=== PATIENT | male | born 1970 | race Caucasian/White ===

== ENCOUNTER 2023-08-18 06:55 | Observation (INO) | payer OTHER ==
[2023-08-18] MEDS ORDERED: KETOROLAC 15 MG/ML 1 ML VIAL IVP STA ×2 (07:20→10:10)
--- NOTE | 2023-08-18 07:28 | ED ---
General Adult HPI - General Chief complaint: Extremity Injury, Lower Stated complaint: Pain in hip and thigh Time Seen by Provider: 08/18/23 07:04 Source: patient, EMS, RN notes reviewed Mode of arrival: EMS Limitations: no limitations - History of Present Illness Initial comments: Patient is a pleasant 53-year-old male presenting to the emergency department with complaints of right hip pain. Patient was doing a lot of moving of furniture this weekend. Patient had some discomfort. Patient will go to urgent care yesterday and was giving muscle relaxers and naproxen. Discomfort worsened around 4 AM. Discomfort increases with movement however sometimes gets better with loosening the area. Discomfort is mostly the anterior right hip. No abdom inal pain. No back pain. No weakness. No incontinence or retention of bowel or bladder products. No calf pain or leg swelling. - Related Data Allergies Allergy/AdvReac Type Severity Reaction Status Date / Time No Known Allergies Allergy Verified 08/18/23 07:24 Review of Systems ROS Statement: Those systems with pertinent positive or pertinent negative responses have been documented in the HPI. ROS Other: All systems not noted in ROS Statement are negative. Constitutional: Denies: fever Eyes: Denies: eye pain ENT: Denies: ear pain Respiratory: Denies: cough Cardiovascular: Denies: chest pain Endocrine: Denies: fatigue Gastrointestinal: Denies: abdominal pain Musculoskeletal: Reports: as per HPI Past Medical History Past Medical History: No Reported History History of Any Multi-Drug Resistant Organisms: None Reported Additional Past Surgical History / Comment(s): Umbilical hernia surgery in approx 2020 Past Psychological History: No Psychological Hx Reported Smoking Status: Never smoker Past Alcohol Use History: Occasional Past Drug Use History: None Reported General Exam Limitations: no limitations General appearance: alert, in no apparent distress Eye exam: Present: normal appearance Respiratory exam: Present: normal lung sounds bilaterally Cardiovascular Exam: Present: regular rate, normal rhythm Expanded Peripheral pulses: 2+: Femoral (R), Posterior Tibialis (R), Posterior Tibialis (L), Dorsalis Pedis (R), Dorsalis Pedis (L) GI/Abdominal exam: Present: soft. Absent: tenderness, pulsatile mass Extremities exam: Present: normal inspection, tenderness (Right anterior superior iliac spine). Absent: pedal edema, calf tenderness Back exam: Present: normal inspection. Absent: tenderness, vertebral tenderness Neurological exam: Present: alert. Absent: motor sensory deficit Expanded Sensory exam: Lower Extremity Light Touch: Normal Motor strength exam: RUE: 5, LUE: 5, RLE: 5, LLE: 5 Psychiatric exam: Present: normal affect, normal mood Skin exam: Present: normal color Course Vital Signs 08/18/23 08/18/23 08/18/23 07:09 09:06 11:10 Temperature 98.1 F 98.7 F Pulse Rate 77 76 88 Respiratory 18 20 28 H Rate Blood Pressure 135/88 138/83 140/81 O2 Sat by Pulse 95 96 96 Oximetry 08/18/23 08/18/23 11:15 12:25 Temperature Pulse Rate 89 Respiratory 20 30 H Rate Blood Pressure O2 Sat by Pulse 99 Oximetry Medical Decision Making - Medical Decision Making Was pt. sent in by a medical professional or institution (, PA, MEDICAL LAB SPECIALIST, urgent care, hospital, or custodial...) When possible be specific @ -No Did you speak to anyone other than the patient for history (EMS, parent, family, police, friend...)? What history was obtained from this source @ - is present and helps fight history including onset Did you review nursing and triage notes (agree or disagree)? Why? @ -I reviewed and agree with nursing and triage notes Were old charts reviewed (outside hosp., previous admission, EMS record, old EKG, old radiological studies, urgent care reports/EKG's, custodial records)? Report findings @ -No old charts available Differential Diagnosis (chest pain, altered mental status, abdominal pain women, abdominal pain men, vaginal bleeding, weakness, fever, dyspnea, syncope, headache, dizziness, GI bleed, back pain, seizure, CVA, palpatations, mental h ealth, musculoskeletal)? @ -Differential Musculoskeletal Muscular strain, contusion, ligament sprain, fracture, arthritis, septic arthritis, bursitis, cellulitis, muscle spasm, nerve compression, DVT, arterial occlusion, herpes zoster, electrolyte abnormality, tumor.... This is not meant to be in all inclusive list EKG interpreted by me (3pts min.). @ -As above X-rays interpreted by me (1pt min.). @ -Right hip x-ray does not reveal acute abnormality CT interpreted by me (1pt min.). @ -Computed tomography scan pelvis and right hip does not show any obvious abn ormality U/S interpreted by me (1pt. min.). @ -None done What testing was considered but not performed or refused? (CT, X-rays, U/S, labs)? Why? @ -Will add C-reactive protein test What meds were considered but not given or refused? Why? @ -None Did you discuss the management of the patient with other professionals (professionals i.e. DrSonia, PA, MEDICAL LAB SPECIALIST, lab, RT, psych nurse, manager social responsibility, director life insurance, teacher, grants officer, porter sample case)? Give summary @ -Case was discussed with Dr. Ruth, who will admit covering hospital call. Was smoking cessation discussed for >3mins.? @ -No Was critical care preformed (if so, how long)? @ -No Were there social determinants of health that impacted care today? How? (Homelessness, low income, unemployed, alcoholism, drug addiction, transportation, low edu. Level, literacy, decrease access to med. care, snf, rehab)? @ -No Was there de-escalation of care discussed even if they declined (Discuss DNR or withdrawal of care, Hospice)? DNR status @ -No What co-morbidities impacted this encounter? (DM, HTN, Smoking, COPD, CAD, Cancer, CVA, ARF, Chemo, Hep., AIDS, mental health diagnosis, sleep apnea, morbid obesity)? @ -None Was patient admitted / discharged? Hospital course, mention meds given and r oute, prescriptions, significant lab abnormalities, going to OR and other pertinent info. @ -Patient reevaluated. Patient comfortable rest however significant discomfort with attempted movement of the leg. Secondary to this patient will be admitted. Admission orders written. ortho will be placed on consult. Undiagnosed new problem with uncertain prognosis? @ -No Drug Therapy requiring intensive monitoring for toxicity (Heparin, Nitro, Insulin, Cardizem)? @ -No Were any procedures done? @ -No Diagnosis/symptom? @ -Hip pain Acute, or Chronic, or Acute on Chronic? @ -Acute Uncomplicated (without systemic symptoms) or Complicated (systemic symptoms)? @ -default Side effects of treatment? @ -No Exacerbation, Progression, or Severe Exacerbation? @ -No Poses a threat to life or bodily function? How? (Chest pain, [place], [place], pneumonia, PE, COPD, DKA, ARF, appy, cholecystitis, CVA, Diverticulitis, Homicidal, Suicidal, threat to staff... and all critical care pts) @ -No - Lab Data Result diagrams: 08/18/23 10:23 08/18/23 10:23 Lab Results 08/18/23 08/18/23 08/18/23 Range/Units 10:23 10:23 10:23 WBC 10.2 (3.8-10.6) k/uL RBC 5.14 (4.30-5.90) m/uL Hgb 15.5 (13.0-17.5) gm/dL Hct 45.4 (39.0-53.0) % MCV 88.4 (80.0-100.0) fL MCH 30.2 (25.0-35.0) pg MCHC 34.2 (31.0-37.0) g/dL RDW 13.3 (11.5-15.5) % Plt Count 225 (150-450) k/uL MPV 7.7 Neutrophils % 70 % Lymphocytes % 18 % Monocytes % 6 % Eosinophils % 3 % Basophils % 1 % Neutrophils # 7.1 (1.3-7.7) k/uL Lymphocytes # 1.9 (1.0-4.8) k/uL Monocytes # 0.7 (0-1.0) k/uL Eosinophils # 0.3 (0-0.7) k/uL Basophils # 0.1 (0-0.2) k/uL PT 11.1 (10.0-12.5) sec INR 1.0 (<1.2) APTT 22.5 (22.0-30.0) sec Sodium 141 (137-145) mmol/L Potassium 4.7 (3.5-5.1) mmol/L Chloride 107 (98-107) mmol/L Carbon Dioxide 25 (22-30) mmol/L Anion Gap 9 mmol/L BUN 21 H (9-20) mg/dL Creatinine 1.08 (0.66-1.25) mg/dL Est GFR (CKD-EPI)AfAm >90 (>60 ml/min/1.73 sqM) Est GFR (CKD-EPI)NonAf 79 (>60 ml/min/1.73 sqM) Glucose 123 H (74-99) mg/dL Calcium 9.5 (8.4-10.2) mg/dL Total Bilirubin 1.1 (0.2-1.3) mg/dL AST 28 (17-59) U/L ALT 47 (4-49) U/L Alkaline Phosphatase 60 (38-126) U/L Total Protein 7.5 (6.3-8.2) g/dL Albumin 4.2 (3.5-5.0) g/dL Disposition Clinical Impression: Hip pain Disposition: ADMITTED IP TO THIS HOSP Is patient prescribed a controlled substance at d/c from ED?: No Referrals: Manasa Arredondo MD [Primary Care Provider] - 1-2 days Time of Disposition: 12:43
--- NOTE | 2023-08-18 08:16 | XR ---
EXAMINATION TYPE: XR Hip RT and AP Pelvis DATE OF EXAM: 08/18/2023 COMPARISON: None HISTORY: Right hip pain TECHNIQUE: 2V right hip supplemented with an AP pelvis FINDINGS: Femoral heads articulate with the acetabulum. Joint spaces are preserved. Symphysis pubis a nd sacroiliac joints are normal. No acute fracture or dislocation of the right hip is evident. IMPRESSION: 1. Unremarkable 2 view right hip
[2023-08-18] MEDS ORDERED: HYDROmorphone 1 MG/ML 1 ML SYRINGE IVP STA ×2 (08:46→11:06)
[2023-08-18 10:39] LABS: Basophils # (A) 0.1 k/uL (0-0.2); Basophils % (A) 1 %; Eosinophils # (A) 0.3 k/uL (0-0.7); Eosinophils % (A) 3 %; HCT 45.4 % (39.0-53.0); HGB 15.5 gm/dL (13.0-17.5); Lymphocytes # (A) 1.9 k/uL (1.0-4.8); Lymphocytes % (A) 18 %; MCH 30.2 pg (25.0-35.0); MCHC 34.2 g/dL (31.0-37.0); MCV 88.4 fL (80.0-100.0); Mean Platelet Volume 7.7; Monocytes # (A) 0.7 k/uL (0-1.0); Monocytes % (A) 6 %; Neutrophils # (A) 7.1 k/uL (1.3-7.7); Neutrophils % (A) 70 %; Platelet Count 225 k/uL (150-450); RBC 5.14 m/uL (4.30-5.90); RDW 13.3 % (11.5-15.5); WBC 10.2 k/uL (3.8-10.6)
[2023-08-18 10:46] LABS: Partial Thromboplastin Time 22.5 sec (22.0-30.0); Prothrombin Time 11.1 sec (10.0-12.5)
[2023-08-18 11:13] LABS: ALT 47 U/L (4-49); AST 28 U/L (17-59); African American GFR (CKD) >90 (>60 ml/min/1.73 sqM); Albumin 4.2 g/dL (3.5-5.0); Alkaline Phosphatase 60 U/L (38-126); Anion Gap 9 mmol/L; Blood Urea Nitrogen 21 mg/dL (9-20); Calcium 9.5 mg/dL (8.4-10.2); Carbon Dioxide 25 mmol/L (22-30); Chloride 107 mmol/L (98-107); Glucose 123 mg/dL (74-99); Non-African American GFR(CKD) 79 (>60 ml/min/1.73 sqM); Potassium 4.7 mmol/L (3.5-5.1); Sodium 141 mmol/L (137-145); Total Bilirubin 1.1 mg/dL (0.2-1.3); Total Protein 7.5 g/dL (6.3-8.2)
--- NOTE | 2023-08-18 11:29 | CT ---
EXAMINATION TYPE: CT pelvis w con, CT femur RT w con DATE OF EXAM: 08/18/2023 COMPARISON: Pelvic and right hip x-ray earlier today HISTORY: Pain, questionable injury vs abscess CT DLP: 540 (accession [id number]), 706.5 (accession [id number]) mGycm Automated exposure control for dose reduction was used. CONTRAST: Performed with IV Contrast, patient injected with 100 mL of Isovue 300. FINDINGS: Suboptimal due to motion artifact. No acute fracture or dislocation the pelvis or the right femur. Sacroiliac joints are symmetric and within normal limits. Pubic symphysis is intact. Mild to moderate axial joint space loss in both hips is seen. Femoral head shapes are maintained bilaterally. There are 2 tiny nonspecific sclerotic foci in the right femoral head noted, findings favor benign b one islands. Degenerative changes in visualized portion of the exam. No free fluid in the pelvis. No significant groin adenopathy is seen. Muscle bulk in the bilateral thighs is maintained. No suspiciou s enhancement is noted. No well-formed fluid collection or abscess is seen. IMPRESSION: Suboptimal study. No acute fracture or dislocation the pelvis or right femur. No well-for med fluid collection or abscess identified.
[2023-08-18] MEDS ORDERED: ORPHENADRINE 30 MG/ML 2 ML VIAL IVP STA (12:26)
[2023-08-18] MEDS ORDERED: NALOXONE 0.4 MG/ML 1 ML VIAL IV PRN (12:44)
[2023-08-18] MEDS ORDERED: IBUPROFEN 400 MG TAB PO PRN (12:44)
[2023-08-18] MEDS ORDERED: ACETAMINOPHEN TAB 325 MG TAB PO PRN (12:44)
[2023-08-18] MEDS: SODIUM CHLORIDE 0.9% 1,000 ML IV SCH (13:53)
--- NOTE | 2023-08-18 14:04 | US ---
EXAMINATION TYPE: US venous doppler duplex LE RT DATE OF EXAM: 08/18/2023 1:42 PM COMPARISON: NONE CLINICAL INDICATION: Male, 53 years old with history of pain; Right hip/groin pain. No leg redness o r swelling. SIDE PERFORMED: Right TECHNIQUE: The lower extremity deep venous system is examined utilizing real time linear array sonog janina with graded compression, doppler sonography and color-flow sonography. VESSELS IMAGED: Common Femoral Vein Deep Femoral Vein Greater Saphenous Vein * Femoral Vein Popliteal Vein Small Saphenous Vein * Proximal Calf Veins (* superficial vessels) Right Leg: Negative for DVT IMPRESSION: 1. Right lower extremity ultrasound negative for deep venous thrombosis.
[2023-08-18] MEDS: HYDROmorphone 1 MG/ML 1 ML SYRINGE IVP PRN ×2 (14:22→21:33)
--- NOTE | 2023-08-18 16:12 | P.HPIM ---
History of Present Illness H&P Date: 08/18/23 Patient is a 53-year-old male with no significant past medical history presenting with right anterior hip pain. Pain started initially on the posterior aspect of right thigh 1-1/2 weeks ago. He claims that he was moving a lot of furniture during that time. However yesterday night the pain, worse and more anterior thigh. He is unable to walk because of extreme pain. He claims t hat it is 10 out of 10. He is not able to flex his right hip, otherwise pain is better controlled than he is resting. Vital signs have been within normal limits. CBC unremarkable, CMP shows BUN of 21, creatinine 1.08, glucose 123, negative CRP. Pelvic x-rays unremarkable. Femur CT shows no acute fracture or dislocation. Venous Dopplers negative for DVT. Patient required multiple doses of pain medications in the ED, unable to ambulate due to extreme pain. Admitted for as observation for further pain control and work up. Orthopedic surgery also consulted. Pertinent positives and negatives as discussed in HPI, a complete review of systems was performed and all other systems are negative. Patient seen and examined at bedside. Vital signs reviewed General: nontoxic, no distress, appears at stated age Derm: warm, dry Head: atraumatic, normocephalic, symmetric Eyes: EOMI, no lid lag, anicteric sclera, pupils equal round reactive to light ENT: Nose and ears atraumatic Neck: No thyromegaly, supple Mouth: no lip lesion, mucus membranes moist Cardiovascular: S1S2 reg, no murmur, no edema Lungs: clear to auscultation bilateral, no rhonchi, no rales, no wheeze, no accessory muscle use Abdominal: soft, nontender to palpation, no guarding, no appreciable organomegaly Ext: Unable to flex right hip. Nontender to palpation. Neuro: CN II-XII grossly intact Psych: Alert, oriented, appropriate affect Assessment/Plan: Acute right hip pain Suspected muscle strain -Pain control with oral Tylenol as needed, IV Dilaudid as needed, ibuprofen as needed Toradol IV as needed -Monitor for respiratory depression -Orthopedics surgery consulted, pending recommendations The patient is admitted with an anticipated less than 2 midnight stay as observation status for evaluation of acute right hip pain. Surrogate decision-maker: Significant other CODE STATUS: Full code DVT prophylaxis: Lovenox Anticipated discharge date: Pending clinical course Anticipated discharge place: Pending clinical course A total of 55 minutes was spent on the care of this complex patient more than 50% of the time was spent in counseling and care coordination. Past Medical History Past Medical History: No Reported History History of Any Multi-Drug Resistant Organisms: None Reported Additional Past Surgical History / Comment(s): Umbilical hernia surgery in approx 2020 Past Psychological History: No Psychological Hx Reported Smoking Status: Never smoker Past Alcohol Use History: Occasional Past Drug Use History: None Reported Medications and Allergies Home Medications Medication Instructions Recorded Confirmed Type Cyclobenzaprine [Flexeril] 10 mg PO HS PRN 08/18/23 08/18/23 History Naproxen [Naprosyn] 500 mg PO BID PRN 08/18/23 08/18/23 History Allergies Allergy/AdvReac Type Severity Reaction Status Date / Time No Known Allergies Allergy Verified 08/18/23 13:19 Physical Exam Vitals: Vital Signs Temp Pulse Resp BP Pulse Ox 08/18/23 12:25 89 30 H 99 08/18/23 11:15 20 08/18/23 11:10 88 28 H 140/81 96 08/18/23 09:06 98.7 F 76 20 138/83 96 08/18/23 07:09 98.1 F 77 18 135/88 95 Intake and Output 08/18/23 08/18/23 08/18/23 06:59 14:59 22:59 Other: Weight 117.934 kg Results CBC & Chem 7: 08/18/23 10:23 08/18/23 10:23 Labs: Abnormal Lab Results - Last 24 Hours (Table) 08/18/23 Range/Units 10:23 BUN 21 H (9-20) mg/dL Glucose 123 H (74-99) mg/dL
[2023-08-18] MEDS: HYDROmorphone 0.5 MG/0.5 ML SYRINGE IVP PRN (17:59)
[2023-08-18] MEDS ORDERED: CYCLOBENZAPRINE 10 MG TAB PO STA (20:16)
[2023-08-19] MEDS: HYDROmorphone 1 MG/ML 1 ML SYRINGE IVP PRN (01:47)
[2023-08-19] MEDS: SODIUM CHLORIDE 0.9% 1,000 ML IV SCH ×2 (01:56→10:01)
[2023-08-19] MEDS: HYDROmorphone 0.5 MG/0.5 ML SYRINGE IVP PRN (06:35)
[2023-08-19 08:14] VITALS: RESP 16
--- NOTE | 2023-08-19 09:24 | P.CNOR ---
History of Present Illness - [facility] Consult date: 08/19/23 Consult reason: joint pain (Right hip/groin pain.) History of present illness: This is a 53-year-old male with recent history of severe right groin, buttock and thigh pain. He states that he was helping his mother move out of her apartment and move her things into storage recently. He had been doing a lot of heavy lifting, squatting, bending and twisting. He began having pain in the posterior thigh and inguinal region. He states that yesterday he was unable to even get out of bed secondary to the severe pain. He states the pain then radiated up into the groin and right hip. He states that he does have history of low back problems in the past. He reports no recent trauma or injury other than the increased activity and heavy lifting. He works construction. He denies any numbness or tingling down the legs. He denies any recent bowel or bladder dysfunction. We are consulted for orthopedic evaluation of his severe pain. Past Medical History Past Medical History: No Reported History History of Any Multi-Drug Resistant Organisms: None Reported Additional Past Surgical History / Comment(s): Umbilical hernia surgery in approx 2020 Past Psychological History: No Psychological Hx Reported Smoking Status: Never smoker Past Alcohol Use History: Occasional Past Drug Use History: None Reported Medications and Allergies Home Medications Medication Instructions Recorded Confirmed Type Cyclobenzaprine [Flexeril] 10 mg PO HS PRN 08/18/23 08/18/23 History Naproxen [Naprosyn] 500 mg PO BID PRN 08/18/23 08/18/23 History Allergies Allergy/AdvReac Type Severity Reaction Status Date / Time No Known Allergies Allergy Verified 08/18/23 13:19 Physical Examination This is a pleasant 53-year-old male in no acute distress. He is alert and oriented 3. He is up ambulating in his room with a slightly antalgic gait. He is able to sit at the edge of the bed with some difficulty and lowering himself to a seated position. Exam of the thoracic and lumbar spine reveal no obvious deformity. He is nontender with palpation over the spinous processes or paraspinal musculature. There is mild right lower paraspinal musculature tenderness with deep palpation. Exam of the lower extremities reveals no obvious deformity. He is able to actively flex and extend the hip with mild discomfort. He has no pain with internal or external rotation of the hip. Straight leg raise produces some pain up into the buttock and upper thigh. There is some weakness with hip flexion. He has full foot and ankle motion bilaterally with good strength with dorsiflexion against resistance. Pedal pulses are +2/4 bilaterally. Neurovascular status to the lower extremities is intact. Results X-rays and CT of the pelvis and right hip reveal no obvious fracture or bony abnormality. Hip joint shows minimal arthritic changes. - Labs Labs: Abnormal Lab Results - Last 24 Hours (Table) 08/18/23 Range/Units 10:23 BUN 21 H (9-20) mg/dL Glucose 123 H (74-99) mg/dL H & H 08/18/23 Range/Units 10:23 Hgb 15.5 (13.0-17.5) gm/dL Hct 45.4 (39.0-53.0) % Coagulation 08/18/23 Range/Units 10:23 INR 1.0 (<1.2) Result Diagrams: 08/18/23 10:23 08/18/23 10:23 Assessment and Plan (1) Lumbar back pain with radiculopathy affecting right lower extremity Current Visit: Yes Status: Acute Code(s): M54.16 - RADICULOPATHY, LUMBAR REGION SNOMED Code(s): 583443977 (2) Hip pain Current Visit: Yes Status: Acute Code(s): M25.559 - PAIN IN UNSPECIFIED HIP SNOMED Code(s): 40080793 Plan: The clinical and radiographic findings are discussed with the patient and his . It is discussed that he likely has a lumbar contribution to his symptoms. It is recommended he be placed on IV site Medrol for 3 doses then switch to a prednisone taper at discharge. I've ordered lumbar films. He would likely benefit from evaluation with the lumbar MRI which may be done as an outpatient. We will continue to follow during his inpatient course and plan follow-up within a week or so discharge.
[2023-08-19] MEDS: KETOROLAC 15 MG/ML 1 ML VIAL IVP PRN ×3 (10:00→23:08)
--- NOTE | 2023-08-19 11:12 | P.PN ---
Subjective Progress Note Date: 08/19/23 Hospital Course: 53-year-old male with no significant past medical history presenting with right anterior hip pain. Vital signs have been within normal limits. CBC unremarkable, CMP shows BUN of 21, creatinine 1.08, glucose 123, negative CRP. Pelvic x-rays unremarkable. Femur CT shows no acute fracture or dislocation. Venous Dopplers negative for DVT. Patient required multiple doses of pain medications in the ED, unable to ambulate due to extreme pain. Admitted for as observation for further pain control and work up. Orthopedic surgery also consulted. Orthopedic surgery recommending IV steroids for total of 3 doses and then steroid taper. Initial back imaging pending. Subjective: Patient seen and examined at bedside. No acute events overnight. Able to ambulate today. Anterior thigh pain is resolving, now has lumbar back pain Pertinent positives and negatives as discussed above, a complete review of systems was performed and all other systems are negative. Vitals Signs Reviewed. General: nontoxic, no distress, appears at stated age Derm: warm, dry Head: atraumatic, normocephalic, symmetric Eyes: EOMI, no lid lag, anicteric sclera Mouth: no lip lesion, mucus membranes moist Cardiovascular: S1S2 reg, no murmur Lungs: CTA bilateral, no rhonchi, no rales , no accessory muscle use Abdominal: soft, nontender to palpation, no guarding, no appreciable organomegaly Ext: Limited right hip flexion due to pain Neuro: CN II-XI grossly intact, no focal neuro deficits Psych: Alert, oriented, appropriate affect Data Reviewed Today: Pertinent Labs: No new labs Imaging: Lumbar x-rays pending, will be reviewed when available Assessment and Plan: Acute lumbar back pain with radiculopathy Acute right hip pain, resolving -Pain control with oral Tylenol as needed, IV Dilaudid as needed, ibuprofen as needed Toradol IV as needed -Monitor for respiratory depression -Orthopedics surgery note reviewed, pending lumbar spine x-rays, 3 doses of IV Solu-Medrol 80 mg every 8 hours, monitor mentation, and then patient will need to be on steroid taper at home, likely get MRI outpatient. DVT ppx: Lovenox Code status: Full code Anticipated discharge place: Home Anticipated discharge time: Tomorrow Objective - Vital Signs Vital signs: Vital Signs Temp 97.9 F 08/19/23 07:30 Pulse 72 08/19/23 07:30 Resp 16 08/19/23 10:00 BP 119/81 08/19/23 07:30 Pulse Ox 94 L 08/19/23 07:30 FiO2 Intake & Output 08/18/23 08/19/23 08/19/23 18:59 06:59 18:59 Intake Total 118 Balance 118 Weight 117.934 kg 117.934 kg Intake: Oral 118 Other: Voiding Method Urinal Urinal Urinal # Voids 2 - Labs CBC & Chem 7: 08/18/23 10:23 08/18/23 10:23 Labs: Abnormal Lab Results - Last 24 Hours (Table) 08/18/23 Range/Units 10:23 BUN 21 H (9-20) mg/dL Glucose 123 H (74-99) mg/dL
--- NOTE | 2023-08-19 12:36 | XR ---
EXAMINATION TYPE: XR lumbosacral spine min 4V DATE OF EXAM: 08/19/2023 COMPARISON: Three-view lumbar spine HISTORY: Pain TECHNIQUE: 3 view lumbar spine FINDINGS: Some mild posterior disc space narrowing is present at L3-4. Disc heights are otherwise pre served. Vertebral body heights are preserved. Alignment is normal. There are 5 lumbar-type vertebral bodies. The pedicles are intact. IMPRESSION: 1. Minimal degenerative disc change posterior L3-4 disc level
[2023-08-19] MEDS: methylPREDNISolone SOD SUCCI 125 MG/2 ML VIAL IV SCH ×2 (16:00→23:08)
[2023-08-20 08:41] VITALS: BP 129/73; PULSE 92; TEMP 97.7
--- NOTE | 2023-08-20 08:46 | P.PN ---
Progress Note - Text Progress Note Date: 08/20/23 Orthopedic spine: History of present illness: Patient is a pleasant 53-year-old male who is seen and examined for further evaluation of his right lower extremity. On presentation he was experiencing severe right-sided groin pain, buttock pain, and thigh pain. Since being admitted to the hospital he was started on steroid medication. His pain has significantly improved. He is not currently complaining of any significant right lower extremity radiculopathy. He denies any right lower extremity weakness. He is neurovascularly intact. He feels his symptoms are significantly stable and he is ready for discharge home today. He has been able to imitate the hallways without any significant difficulty. We did discuss x-ray imaging of his lumbar spine was performed yesterday which does show some mild degenerative changes most significant at L3-4. Currently, we'll plan to clear him for discharge with plans for follow up evaluation approximate 2-3 weeks. Physical exam: Patient is awake, alert, and oriented 3 Vital signs stable Good chest excursion with deep inspiration and expiration Abdomen soft nontender Dorsiflexion, plantarflexion, and extensor hallucis longus positive sustained bilaterally Lower extremity strength 5/5 bilaterally Straight leg test negative bilateral lower extremities No signs or symptoms of DVT; no calf pain No pain with internal and external rotation of the hips bilaterally Neurovascularly intact Pertinent studies: X-rays of the lumbosacral spine taken on 08/19/2023: Overall alignment appears to be fairly well maintained; L3-4 degenerative disc disease; no evidence of compression fracture deformity; no obvious spondylolisthesis Assessment: Severe right lower extremity radiculopathy with pain at the right groin, buttock, and on thigh presentation L3-4 degenerative disc disease Plan: 1. Patient was experiencing significant right lower extremity radiculopathy with difficulty breathing activities of daily lifting after helping his mom move out of the apartment and things into stored recently. He presents the emergency department for further evaluation. He was admitted for further treatment and evaluation. There were no significant findings in regards to his right hip. He does have some mild degenerative change at his lumbar spine. He was started on IV steroid medication and has had significant improvement since that time. He is not currently receiving any severe lower extremity radiculopathy. He denies lower extremity weakness. Currently, he feels his symptoms are well-controlled and he is ready for discharge home today. IV steroid medication will be discontinued. A prescription has been sent for a 20 mg prednisone taper. He should take this taper until completion. He should avoid anti-inflammatory medication on this taper. Patient may follow-up with Shekhar Candelaria PA-C or Dr. Chace Haji at [facility] in 2-3 weeks following discharge. If symptoms do not continue to improve or worsen, we may plan for MRI imaging of the lumbar spine in the outpatient setting.
[2023-08-20] MEDS ORDERED: ENOXAPARIN 40 MG/0.4 ML SYRINGE SQ SCH (09:00)
[2023-08-20] MEDS: methylPREDNISolone SOD SUCCI 125 MG/2 ML VIAL IV SCH (09:50)
--- NOTE | 2023-08-20 11:30 | P.DS ---
Providers Date of admission: 08/18/23 12:45 Expected date of discharge: 08/20/23 Attending physician: Abdi Cotto MD Consults: 08/18/23 13:22 Consult Physician Urgent Consulting Provider: Maria Del Rosario Haji Consult Reason/Comments: Hip pain Do you want consulting provider notified?: Yes Primary care physician: Manasa Arredondo MD Hospital Course: Discharge Diagnosis: Acute lumbar back pain with radiculopathy Acute right hip pain Hospital Course: 53-year-old male with no significant past medical history presenting with right anterior hip pain. Vital signs have been within normal limits. CBC unremarkable, CMP shows BUN of 21, creatinine 1.08, glucose 123, negative CRP. Pelvic x-rays unremarkable. Femur CT shows no acute fracture or dislocation. Venous Dopplers negative for DVT. Patient required multiple doses of pain medications in the ED, unable to ambulate due to extreme pain. Admitted for as observation for further pain control and work up. Orthopedic surgery also consulted. Orthopedic surgery recommending IV steroids for total of 3 doses and then oral steroid taper. Lumbar spine x-ray showed minimal degenerative disc change posterior L3 to 4 disc level. Patient able to ambulate and pain better controlled at the time of discharge. Follow-up outpatient with orthopedic surgery. Patient seen and examined at bedside. Vital signs reviewed and stable. General: nontoxic, no distress, appears at stated age Derm: warm, dry Head: atraumatic, normocephalic, symmetric Eyes: EOMI, no lid lag, anicteric sclera Mouth: no lip lesion, mucus membranes moist Cardiovascular: S1S2 reg, no murmur Lungs: CTA bilateral, no rhonchi, no rales , no accessory muscle use Abdominal: soft, nontender to palpation, no guarding, no appreciable organome sebas Ext: no gross muscle atrophy, no edema, no contractures Neuro: CN II-XI grossly intact, no focal neuro deficits Psych: Alert, oriented, appropriate affect A total of 36 minutes of time were spent preparing this complex discharge summary. Patient was discharged on 08/20/23 at 0918. Patient Condition at Discharge: Stable Plan - Discharge Summary New Discharge Prescriptions: New predniSONE [Deltasone] 20 mg PO DIRECTED #24 tab Discontinued Naproxen [Naprosyn] 500 mg PO BID PRN PRN Reason: Pain Cyclobenzaprine [Flexeril] 10 mg PO HS PRN PRN Reason: Muscle Spasm Discharge Medication List predniSONE [Deltasone] 20 mg PO DIRECTED #24 tab 08/19/23 [Rx] Follow up Appointment(s)/Referral(s): Shekhar Candelaria PAC [PHYSICIAN [employer]UT[employer] MANAGER] - 09/03/23 1:00 pm (Patient may follow-up with Shekhar Candelaria PA-C or Dr. Chace Haji at [facility] in 2-3 weeks following discharge. Please bring insurance card and ID ) Manasa Arredondo MD [Primary Care Provider] - 1-2 days Patient Instructions/Handouts: Lumbar Radiculopathy (GEN) Activity/Diet/Wound Care/Special Instructions: Please see orthopedics. Discharge Disposition: HOME SELF-CARE
== END 2023-08-20 10:43 | disposition home or self-care (01) ==
LOC: EC 06:55 → 6NMEDSUR 12:45
PROVIDERS: ADMIT Student in an Organized Health Care Education/Training Program; ATTEND Student in an Organized Health Care Education/Training Program
DX: M51.16 Intervertebral disc disorders with radiculopathy, lumbar region (principal); M25.551 Pain in right hip; R26.2 Difficulty in walking, not elsewhere classified; X50.0XXA Overexertion from strenuous movement or load, initial encounter; Z87.19 Personal history of other diseases of the digestive system; Z98.890 Other specified postprocedural states
CPT/HCPCS: 96376 ×4; 96361 ×3; 96375 ×2; 96374; 99285; 36415; 80053; 85025; 85610; 85730; 86140; 72110; 73502; 93971; 72193; 73701; G0378 ×3; J2360; J2930 ×2; J1170 ×4; J1885 ×2; Q9967

== ENCOUNTER → 2023-10-02 | Outpatient (CLI) | payer OTHER ==
--- NOTE | 2023-10-02 11:17 | MR ---
EXAMINATION TYPE: MR lumbar spine wo con DATE OF EXAM: 10/02/2023 COMPARISON: Lumbar spine x-ray August 19, 2023 HISTORY: Lower back pain, RLE radiculopathy. TECHNIQUE: Multiplanar, multisequence imaging of the lumbar spine is performed without IV contrast. FINDINGS: Sagittal images of the lumbar spine show vertebral body heights and alignment to appear sat isfactory. Multilevel disc desiccation but the disc space heights are preserved. The conus medullari s is normal in position and signal ending at mid L1 level. The bone marrow signal intensity is withi n normal limits. Axial images show T12-L1 and L1-L2 levels to appear within normal limits. Axial images at L2-L3 level show mild based posterior disc protrusion mildly effacing the anterior th ecal sac with patent bilateral neural foramina. Axial images at L3-L4 level show focal broad-based left paracentral disc protrusion with slight super ior extrusion component effacing the anterolateral thecal sac. Patent bilateral neural foramina. Encr oachment near the central left L4 nerve is seen sagittal image 8 and axial image 13. Axial images at L4-L5 level show mild facet arthropathy with right foraminal disc protrusion componen t causing advanced right-sided neural foraminal narrowing seen best sagittal image 13 and axial image 7. Left-sided neural foramen is patent. Spinal canal is preserved. Axial images at L5-S1 level appear within normal limits. Paraspinal muscle bulk is maintained. IMPRESSION: Eccentric disc herniation L4-L5 level causes advanced right-sided neural foraminal narrow ing and effacement of the exiting right L4 nerve.
== END | disposition home or self-care (01) ==
LOC: RADMRIMAIN 09:59
PROVIDERS: ATTEND Orthopaedic Surgery Orthopaedic Surgery of the Spine
DX: M54.59 Other low back pain (principal); M54.50 Low back pain, unspecified; M79.10 Myalgia, unspecified site; M54.16 Radiculopathy, lumbar region; M79.661 Pain in right lower leg; R20.2 Paresthesia of skin
CPT/HCPCS: 72148